=== PATIENT | female | born 1985 | race Caucasian/White ===

== ENCOUNTER → 2016-06-18 | Outpatient (CLI) | payer MEDICARE, MEDICAID ==
[~2016-06-18] MED LIST: ABILIFY2 MG; AMOXICILLIN 50500 MG PO; ATARAX 25MG25 MG/TAB PO; ATIVAN0.5 MG PO; BUSPAR DIVIDOSE15 MG PO; BUSPIRONE; CELEXA40 MG PO; CLARITIN 1010 MG/TAB PO; CLONAZEPAM PO; CYMBALTA 60MG60 MG PO; INDERAL 20MG20 MG PO; INDERAL40 MG PO; INVAGA; KLONOPIN 1MG1 MG PO; KLONOPIN2 MG PO; MOTRIN 800800 MG/TAB PO; NAPROSYN500 MG PO; NEURONTIN300 MG/CAP PO; NORCO 325 MG-51 TAB PO; PERCOCET 325 MG1 TA2 PO; PHENERGAN W/CO120 ML PO; PRENATAL1 TA7 PO; PROAIR HFA0.09 MG/AC IH; PROPRANOLOL10 MG PO; SEROQUEL 2525 MG/TAB PO; SINGULAIR 110 MG/TAB PO; UNABLE; VENTOLIN0.09 MG IH; ZITHROMAX 250M250 MG PO
== END ==
LOC: BHSO 10:53
DX: F31.81 Bipolar II disorder (principal)

== ENCOUNTER 2016-07-12 10:30 | Emergency (ER) | payer MEDICARE, MEDICAID ==
[~2016-07-12] VITALS: Ht 175.3 cm; Wt 91.8 kg
[2016-07-12 10:48] VITALS: BP 127/92; TEMP 98.7
[2016-07-12] MEDS ORDERED: BUSPAR DIVIDOSE15 MG PO (10:51)
[2016-07-12 12:24] VITALS: PULSE 75
== END 2016-07-12 12:25 | disposition home or self-care (01) ==
LOC: COL.ER 10:30
DX: J06.9 Acute upper respiratory infection, unspecified (principal); B34.9 Viral infection, unspecified

== ENCOUNTER → 2016-09-16 | Outpatient (CLI) | payer MEDICARE, MEDICAID | LOC: BHSO 14:51 | DX: F41.1 Generalized anxiety disorder (principal) ==

== ENCOUNTER → 2017-12-28 | Outpatient (CLI) | payer MEDICARE | LOC: BHSO 14:41 | DX: F41.1 Generalized anxiety disorder (principal) | CPT/HCPCS: G0463 ==

== ENCOUNTER → 2018-03-01 | Outpatient (CLI) | payer MEDICARE | LOC: BHSO 14:35 | DX: F41.1 Generalized anxiety disorder (principal) | CPT/HCPCS: G0463 ==

== ENCOUNTER → 2018-06-11 | Outpatient (CLI) | payer MEDICARE | LOC: BHSO 14:38 | DX: F41.1 Generalized anxiety disorder (principal) | CPT/HCPCS: G0463 ==

== ENCOUNTER → 2018-11-03 | Outpatient (CLI) | payer MEDICARE | LOC: BHSO 14:32 | DX: F41.1 Generalized anxiety disorder (principal) | CPT/HCPCS: G0463 ==

== ENCOUNTER → 2019-05-06 | Outpatient (CLI) | payer MEDICARE | LOC: BHSO 14:32 | DX: F41.1 Generalized anxiety disorder (principal) | CPT/HCPCS: G0463 ==

== ENCOUNTER → 2019-11-03 | Outpatient (CLI) | payer MEDICARE | LOC: BHSO 15:20 | DX: F41.1 Generalized anxiety disorder (principal) ==

== ENCOUNTER → 2019-12-29 | Outpatient (CLI) | payer MEDICARE | LOC: BHSO 15:18 | DX: F41.0 Panic disorder [episodic paroxysmal anxiety] (principal) | CPT/HCPCS: G0463 ==

== ENCOUNTER 2021-07-15 12:06 | Emergency (ER) | payer MEDICARE ==
[~2021-07-15] VITALS: Ht 172.7 cm; Wt 84.1 kg
[2021-07-15 12:16] VITALS: TEMP 98.6
[2021-07-15 12:56] LABS: BASO % 0.5 % (0.0-2.0); EOS # 0.1 K/mm3 (0.0-0.7); EOS % 1.1 % (0.0-4.0); GRAN # 5.4 K/mm3 (1.4-6.5); GRAN % 72.5 % (42.2-75.2); HEMATOCRIT 42.4 % (37.0-47.0); HEMOGLOBIN 14.3 g/dl (12.5-16.0); LYMPH # 1.4 K/mm3 (1.2-3.4); LYMPH % 19.1 % (20.0-51.0); MEAN CELL VOLUME 88 fl (80.0-100.0); MEAN CORPUSCULAR HEMOGLOBIN 30 pg (27-31); MEAN CORPUSCULAR HGB CONC 34 g/dl (33.0-37.0); MEAN PLATELET VOLUME 9.5 fl (7.4-10.4); MONO # 0.5 K/mm3 (0.1-0.6); MONO % 6.4 % (1.7-9.3); PLATELET COUNT 271 K/mm3 (130-400); RED BLOOD COUNT 4.81 M/mm3 (4.10-5.30); REDCELL DISTRIBUTION WIDTH-CV 12.5 % (11.5-14.5)
[2021-07-15 13:07] LABS: ALANINE AMINOTRANSFERASE 23 U/L (0-55); ALBUMIN 3.5 gm/dL (3.5-5.0); ALKALINE PHOSPHATASE 60 U/L (40-150); ANION GAP 9 mmol/L (7-16); AST,SGOT 17 U/L (5-34); BILIRUBIN,TOTAL 0.2 mg/dL (0.2-1.2); BLOOD UREA NITROGEN 16 mg/dL (7-19); CALCIUM 8.6 mg/dL (8.4-10.2); CARBON DIOXIDE 21 mmol/L (22-29); CHLORIDE 106 mmol/L (98-107); CREATININE, serum 0.77 mg/dL (0.57-1.11); GLUCOSE 112 mg/dL (70-99); POTASSIUM 3.8 mmol/L (3.5-4.5); SODIUM 136 mmol/L (136-145); TOTAL PROTEIN 6.3 gm/dL (6.2-8.1)
[2021-07-15 13:15] LABS: TROPONIN-I < 0.010 ng/mL (0.00-0.033)
[2021-07-15 14:57] VITALS: BP 121/82; PULSE 82
== END 2021-07-15 15:06 | disposition home or self-care (01) ==
LOC: COL.ER 12:06
PROVIDERS: Nurse Practitioner
DX: R07.89 Other chest pain (principal); F41.9 Anxiety disorder, unspecified; F32.A Depression, unspecified; Z79.899 Other long term (current) drug therapy